=== PATIENT | female | born 1985 | race Hispanic/Latino ===

== ENCOUNTER 2016-11-05 07:25 | Day surgery (SDC) | payer OTHER ==
[2016-11-05 08:25] VITALS: BMI 37.0
[2016-11-05] MEDS ORDERED: Betamet Acet/Betamet Na Ph 30 MG/5 ML VIAL ONE (09:38)
[2016-11-05 10:02] LABS: Bilirubin Negative (Negative); Blood, Urine Negative (Negative); Glucose, Urine (Dipstick) Negative (Negative); Ketone, Urine Negative (Negative); Nitrite Negative (Negative); Protein, Urine (Dipstick) Negative (Neg-Trace); Urobilinogen 0.2 mg/dL (0.2-1.0)
[2016-11-05 10:04] LABS: Bacteria/HPF None Seen HPF (None Seen); Hyaline Casts/LPF 0-3 HYALINE CAST LPF (0-3 Hyaline); RBC/HPF 0-3 HPF (0-3); Squamous Epithelial 0-3 HPF (0-3); WBC/HPF None Seen HPF (0-3)
[2016-11-05 10:15] LABS: Amphetamine Not Detected (NotDetected); Methadone Not Detected (NotDetected); Methamphetamine Not Detected (NotDetected)
--- NOTE | 2016-11-05 10:30 | ULT ---
BIOPHYSICAL PROFILE: History: Decreased movement. Technique: Multiplanar grayscale and color doppler images were obtained in a transabdominal ul trasound. FINDINGS: There is a live intrauterine with heart rate of 128 beats/minute. The BJ is low measuring 3.2 cm. Biophysical profile was calculated. The fetus scored 8/8 which is normal. IMPRESSION: 1. Normal biophysical profile. 2. Oligohydramnios. POS: [facility]
--- NOTE | 2016-11-06 08:30 | PRG ---
DATE OF SERVICE: 11/05/2016 CHIEF COMPLAINT: No movement since 2100 hours. HISTORY OF PRESENT ILLNESS: At the time of presentation, Ms. Brian Hollins is a 31-year-old gra bryant 7, para 4 with history of four prior deliveries, all associated with preeclamp erendira, who presents with no movement since 2100 hours last night. She denies any vaginal bleedi ng, leakage of fluid, or contractions. She denies any fever or chills. She does report some consti pation, but denies any nausea, vomiting, or diarrhea. She denies any cardiovascular, respiratory, o r neurologic complaints. She denies any history of hematuria or dysuria. She is currently on Macro bid prophylaxis once daily for history of urosepsis with at 25 weeks. PAST MEDICAL HISTORY: Negative. PAST SURGICAL HISTORY: 1. section x4. 2. Cholecystectomy. OBSTETRIC HISTORY: The patient is a 7, para 4, AB 2. MEDICATIONS: 1. vitamins. 2. Iron. 3. Acyclovir. 4. Baby aspirin. 5. Macrobid prophylaxis. ALLERGIES: No known drug allergies. SOCIAL HISTORY: The patient denies any tobacco, alcohol, or drug use during this . PHYSICAL EXAMINATION: VITAL SIGNS: Blood pressure is 120s to 130s over 80s to 90s, pulse 78, respiratory rate 18, tempera ture 98.7. GENERAL: Nontoxic-appearing female in no acute distress. OBSTETRIC: heart tracing is reactive and category 1. Tocodynamometer is quiet. HEENT: Normocephalic, atraumatic. LUNGS: Respirations are unlabored. ABDOMEN: Gravid, nontender. EXTREMITIES: Without cyanosis, clubbing, or edema. LABORATORY STUDIES: Urinalysis is negative for proteinuria, negative for pyuria, uatxqau-zc-iwjmvsg ine ratio 0.19. Ultrasound is notable for biophysical profile of 8/8 with an BJ that was initially reported as 5, but on the final dictation by the radiologist was reported at 3.2. ASSESSMENT AND PLAN: 1. A 33 weeks, 0 day intrauterine with BPP of 10/10. The patient has not had anything to eat or drink when she presented, and after eating and drinking, had some movement. 2. Borderline blood pressures. records were requested and patient's blood pressures usual ly run in the 120s to 130s over 80s to 90s range. She denies any preeclampsia symptoms at this time and her ngrceez-ld-yfceyektjx ratio was 0.19. Patient did have a baseline 24-hour urine early in t his that was negative. She will continue to follow up with her primary retail loan officer. 3. Oligohydramnios. When I discussed this case with Dr. Torrez, patient's primary retail loan officer, the BJ that had been reported was a little over 5. Although admission for hydration was discussed, Dr Michoacano Torrez recommended completing her course of betamethasone as an outpatient. She received her first dose today, and will return tomorrow to receive the second dose. I will order a repeat BJ to be d one as well. The patient will then follow up with Dr. Torrez in the office on Thursday. The patient i s discharged to home with routine obstetric and preeclampsia precautions. She does understand the p carol ann of care. She was encouraged to aggressively p.o. hydrate today.
== END 2016-11-05 11:15 | disposition home or self-care (01) ==
LOC: L&D/OP 07:25
PROVIDERS: ATTEND Obstetrics & Gynecology
DX: O36.8130 Decreased fetal movements, third trimester, not applicable or unspecified (principal); O41.03X0 Oligohydramnios, third trimester, not applicable or unspecified; Z3A.33 33 weeks gestation of pregnancy; Z98.891 History of uterine scar from previous surgery; Z90.49 Acquired absence of other specified parts of digestive tract; Z79.82 Long term (current) use of aspirin; Z79.899 Other long term (current) drug therapy
CPT/HCPCS: 59025; 76819; 80306; 81001; 82570; 84156; 96372; J0702

== ENCOUNTER 2016-11-06 10:25 | Day surgery (SDC) | payer OTHER ==
[~2016-11-06 10:25] MED LIST: Betamet Acet/Betamet Na Ph 30 MG/5 ML VIAL IM SCH
[2016-11-06 10:58] VITALS: BMI 37.0
--- NOTE | 2016-11-06 12:48 | ULT ---
BIOPHYSICAL PROFILE: Date: 11/06/16 COMPARISON: 11/05/16. HISTORY: Oligohydramnios. TECHNIQUE: Multiplanar Lockhart scale and color Doppler images were obtained in a transabdominal ultrasound. FINDINGS: There is a single live intrauterine with heart rate of 145 beats/minute. BJ is 6.9 cm, wh ich is low normal. A biophysical profile was calculated at 8 of 8, which is normal. IMPRESSION: 1. Normal biophysical profile. 2. Low normal BJ. POS: [facility]
--- NOTE | 2016-11-06 21:14 | PRG ---
DATE OF SERVICE: 11/06/2016 OB ER ENCOUNTER HISTORY OF PRESENT ILLNESS: The patient is a 31-year-old female with an intrauterine at 33 weeks, who was advised to come in for her second shot of betamethasone and a repeat BPP as she had reported BJ of 3.6 yesterday. The patient came in as instructed and has had a BPP of 8/8 with an BJ of 6.9 cm with a reassuring BPP and improved BJ. Patient has been discharged home with instructions to follow up with her primary OB as scheduled. PHYSICAL EXAMINATION: VITAL SIGNS: Blood pressure today 124/75, heart rate of 93, respiratory rate of 18, temperature 98.3. GENERAL: She appears to be in no acute distress. She is alert and oriented, and cooperative and pleasant to interact with. HEAD: Normocephalic, atraumatic. ABDOMEN: Soft. She has a heart tracing that shows baseline in the 140s with moderate long -term variability, positive accelerations, no decelerations, and no contractions on the tocometer. Indication oligohydramnios. ASSESSMENT AND PLAN: The patient is being discharged to home with instructions to follow up with her primary OB, Dr. Torrez, as scheduled. LORY
== END 2016-11-06 11:50 | disposition home or self-care (01) ==
LOC: L&D/OP 10:25
PROVIDERS: ATTEND Obstetrics & Gynecology
PROC: BY4FZZZ Ultrasonography of Third Trimester, Single Fetus (ICD-10-PCS; principal; 2016-11-06)
DX: O36.8130 Decreased fetal movements, third trimester, not applicable or unspecified (principal); O41.03X0 Oligohydramnios, third trimester, not applicable or unspecified; Z3A.33 33 weeks gestation of pregnancy; Z79.82 Long term (current) use of aspirin; Z79.899 Other long term (current) drug therapy; Z87.891 Personal history of nicotine dependence
CPT/HCPCS: 76819; 96372; J0702

== ENCOUNTER 2016-11-15 19:04 | Day surgery (SDC) | payer OTHER ==
[2016-11-15 19:41] VITALS: BP 141/85; TEMP 99.2; BMI 37.5
[2016-11-15 20:58] LABS: #Basophils 0.1 thou/uL (0.0-0.2); #Eosinphils 0.1 thou/uL (0.0-0.7); #Lymphocytes 1.7 thou/uL (1.20-3.40); #Monocytes 0.8 thou/uL (0.11-0.59); #Neutrophils 5.8 thou/uL (1.40-6.50); %Eosinophils 0.9 % (0.0-10.0); %Lymphocytes 20.5 % (21.0-51.0); %Monocytes 9.2 % (0.0-10.0); Hematocrit 33.8 % (36.0-47.0); Mean Platelet Volume 9.8 fL (7.4-10.4); White Blood Cell (WBC) Count 8.5 thou/uL (4.8-10.8)
[2016-11-15 21:15] LABS: AST (SGOT) 16 U/L (5-34); Anion Gap 12 mmol/L (10-20); BUN (Urea Nitrogen) 8 mg/dL (7.0-18.7); Calc. Creatinine Clearance 208 mL/min (70-130); Calcium 9.3 mg/dL (7.8-10.44); Carbon Dioxide 23 mmol/L (22-29); Chloride 103 mmol/L (98-107); Estimated GFR-MDRD Greater than 90
[2016-11-15 21:32] LABS: Bilirubin Negative (Negative); Blood, Urine Negative (Negative); Glucose, Urine (Dipstick) Negative (Negative); Ketone, Urine Negative (Negative); Nitrite Negative (Negative); Protein, Urine (Dipstick) Negative (Neg-Trace); Urobilinogen 0.2 mg/dL (0.2-1.0)
[2016-11-15 21:35] LABS: Bacteria/HPF Rare-Few HPF (None Seen); Hyaline Casts/LPF 0-3 HYALINE CAST LPF (0-3 Hyaline); RBC/HPF 0-3 HPF (0-3); WBC/HPF 0-3 HPF (0-3)
--- NOTE | 2016-11-16 07:15 | PRG ---
DATE OF SERVICE: 11/15/2016 TIME OF SERVICE: 2145 hours. PRESENTING COMPLAINT: Elevated blood pressures at home at 34 weeks' gestation. HISTORY OF PRESENT ILLNESS: Ms. Hollins is a 31-year-old 7, para 4, AB 2 with previous C-s ection x5. She has had 1 previous classical , is scheduled for a repeat at 37 weeks' gesta tion. She also has a history of preeclampsia in the past and is on aspirin and daily blood pressure monitoring. She reports some elevated blood pressures to 150s systolic at home without headache or blurred vision. OB AND TUB ATTENDANT HISTORY: As noted. Blood type is A positive, antibody negative, Pap negative, rubella i mmune, VDRL nonreactive, hepatitis B, GC chlamydia negative, positive history of herpes. The patien t has a history of a Zika travel. PAST MEDICAL HISTORY: Preeclampsia. PAST SURGICAL HISTORY: C-sections. ALLERGIES: Denies. MEDICATIONS: vitamins, baby aspirin, Macrodantin, and acyclovir. SOCIAL HISTORY: Denies tobacco, alcohol, or drug use. FAMILY HISTORY: Noncontributory. REVIEW OF SYSTEMS: Noncontributory. PHYSICAL EXAMINATION: GENERAL: female in no acute distress. VITAL SIGNS: Temperature 99.1, respirations 18, initial blood pressure was, she had a systolic of 1 52/82, subsequent blood pressures after the patient was admitted and remained calm, were in the 130s to 140s range with diastolics in the 80s. HEENT: Within normal limits. LUNGS: Clear to auscultation bilaterally. HEART: Regular rate and rhythm. BREASTS: No masses bilaterally. ABDOMEN: Soft, nontender. Fundal height 34 cm. FHTs 140s to 150s, positive accelerations, no dece lerations, category 1 heart rate tracing. PELVIC: Vulva without lesions. Vagina without discharge. Cervical exam deferred. EXTREMITIES: Without clubbing, cyanosis, or edema. DTRs 1+. LABORATORY STUDIES: The patient had a white count of 8.5, hematocrit of 33.8, normal platelets at 1 77. Creatinine of 0.57 and AST of 16. Negative protein in the urine. IMPRESSION: History of preeclampsia on baby aspirin with a prior possible classical uterine incisio n, for repeat at 37 weeks without evidence of severe preeclampsia. PLAN: Discharge home. Continue low activity status with blood pressure checks and keep scheduled f ollow up with [employer] with Dr. Chamorro this week.
== END 2016-11-15 22:00 | disposition home or self-care (01) ==
LOC: L&D/OP 19:04
PROVIDERS: ATTEND Obstetrics & Gynecology
DX: O99.89 Other specified diseases and conditions complicating pregnancy, childbirth and the puerperium (principal); R03.0 Elevated blood-pressure reading, without diagnosis of hypertension; Z3A.34 34 weeks gestation of pregnancy; Z79.82 Long term (current) use of aspirin; Z79.899 Other long term (current) drug therapy; Z20.828 Contact with and (suspected) exposure to other viral communicable diseases; Z87.891 Personal history of nicotine dependence; Z87.59 Personal history of other complications of pregnancy, childbirth and the puerperium; Z83.3 Family history of diabetes mellitus
CPT/HCPCS: 36415; 81001; 82570; 84156; 84450

== ENCOUNTER 2016-11-17 09:27 | Outpatient (CLI) | payer OTHER ==
--- NOTE | 2016-11-17 11:07 | ULT ---
LIMITED OB ULTRASOUND FOR BIOPHYSICAL PROFILE: Date: 11/17/16 FINDINGS: A single live intrauterine gestation in vertex presentation with cardiac activity noted at 133 beats /minute. BJ estimated at 8.7 cm. Placenta is posterior in location without evidence of previa. The cervix measured 4.3 cm in length. Fetus received 2/2 for movement, 2/2 for tone, 2/2 for breathing, and 2/2 for amni otic fluid volume. IMPRESSION: Biophysical profile is 8 out of 8. POS: [facility]
== END 2016-11-17 09:28 | disposition home or self-care (01) ==
LOC: ULT 09:27
PROVIDERS: ATTEND Obstetrics & Gynecology
DX: O09.93 Supervision of high risk pregnancy, unspecified, third trimester (principal)
CPT/HCPCS: 76819

== ENCOUNTER → 2016-11-21 | Day surgery (SDC) | payer OTHER ==
[2016-11-21 12:08] VITALS: BP 144/89; TEMP 98.8
[2016-11-21 12:12] VITALS: BMI 38.9
--- NOTE | 2016-11-21 13:24 | PDOC.LDHP ---
Labor and Delivery H&P Chief complaint: other (PIH workup) HPI: 31 y/o at 35w2d, patient of Dr. Chamorro/Kayli at , was sent for evaluation of elevated BPs. Had mild range BPs in clinic consistent with baseline but reported higher than usual blood pressures at home. Is on aspirin for history of preeclampsia. Denies any current HICKS, vision changes, RUQ pain. No VB, LOF, or ctx. +FM ROS neg for HEENT, cv, pulm, gi, gu, neuro, psych, skin, musculoskeletal, or constitutional symptoms other than mentioned above. OB History Details: 4 prior c/s with the first being classical at 25 weeks. Others delivered around 35 weeks. Preeclampsia with all pregnancies. Current complications: hypertension Past Medical History: None Current medications: pre-pearl vitamins Previous surgical history: low tranverse CS, classical CS, cholecystectomy Allergies/Adverse Reactions: Allergies Allergy/AdvReac Type Severity Reaction Status Date / Time No Known Allergies Allergy Verified 11/15/16 19:39 Social history: none - Physical Exam Abnormal vital signs: Normal to mild range BPs General: NAD, resting Lungs: nonlabored breathing Abdomen: gravid Extremeties: no edema FHT: category 1 (140s, mod variability, + accels, no decels) [place] contractions every: rare - OB Labs Blood type: A RH: positive Additional Labs: Laboratory Results - last 24 hr Laboratory Tests 11/21/16 11/21/16 11/21/16 12:00 13:33 13:33 WBC 8.6 RBC 3.72 L Hgb 11.6 L Hct 33.1 L MCV 88.9 MCH 31.1 H MCHC 35.0 RDW 12.1 Plt Count 162 MPV 10.2 Neutrophils % 72.7 Neutrophils % (Manual) Not Reportable Lymphocytes % 16.7 L Monocytes % 9.7 Eosinophils % 0.8 Basophils % 0.2 Neutrophils # 6.2 Lymphocytes # 1.4 Monocytes # 0.8 H Eosinophils # 0.1 Basophils # 0.0 Sodium 136 Potassium 4.1 Chloride 105 Carbon Dioxide 24 Anion Gap 11 BUN 7 Creatinine 0.56 L Estimated GFR (MDRD) Greater than 90 Glucose 60 L Calcium 9.0 Total Bilirubin 0.2 AST 14 ALT 11 Alkaline Phosphatase 174 H Serum Total Protein 6.8 Albumin 3.2 L Globulin 3.6 H Albumin/Globulin Ratio 0.9 L U Random Total Protein 17 Urine Creatinine 73.21 - Assessment 31 y/o at 35w2d with no e/o preeclampsia. Protein creatinine ratio 0.23. status reassuring with reactive NST and BPP 11/18. - Plan -: D/c home with precautions and 24 hour urine protein collection to be returned tomorrow to lab. Already had celestone x 2 this month.
[2016-11-21 14:01] LABS: #Eosinphils 0.1 thou/uL (0.0-0.7); #Lymphocytes 1.4 thou/uL (1.20-3.40); #Monocytes 0.8 thou/uL (0.11-0.59); #Neutrophils 6.2 thou/uL (1.40-6.50); %Basophils 0.2 % (0.0-1.0); %Eosinophils 0.8 % (0.0-10.0); %Lymphocytes 16.7 % (21.0-51.0); %Monocytes 9.7 % (0.0-10.0); Hematocrit 33.1 % (36.0-47.0); Mean Platelet Volume 10.2 fL (7.4-10.4); Red Blood Cell (RBC) Count 3.72 mill/uL (4.20-5.40); White Blood Cell (WBC) Count 8.6 thou/uL (4.8-10.8)
[2016-11-21 14:23] LABS: ALT (SGPT) 11 U/L (8-55); AST (SGOT) 14 U/L (5-34); Alkaline Phosphatase 174 U/L (40-150); Anion Gap 11 mmol/L (10-20); BUN (Urea Nitrogen) 7 mg/dL (7.0-18.7); Bilirubin, Total 0.2 mg/dL (0.2-1.2); Calc. Creatinine Clearance 219 mL/min (70-130); Carbon Dioxide 24 mmol/L (22-29); Chloride 105 mmol/L (98-107); Estimated GFR-MDRD Greater than 90; Globulin 3.6 g/dL (2.4-3.5); Protein, Total 6.8 g/dL (6.0-8.3)
--- NOTE | 2016-11-21 15:16 | ULT ---
ULTRASOUND BIOPHYSICAL PROFILE: Date: 11-21-16 History: Elevated blood pressure. History of oligohydramnios. Comparison: 11-17-16 FINDINGS: Again noted is a single intrauterine gestation in cephalic presentation. Cardiac doppler demonstrate s heart tones with a heart rate of 145 beats/minute. The placenta is located anteriorly without evidence of placenta previa. Cervical length is 3.1 cm. Amniotic fluid index was obtained which measures 9.8 cm and previously measured 8.7 cm on study of . Cardiac doppler demonstrates heart tones with a heart rate ranging from 137 to 149 beats /minute. A score of 2 is obtained each for tone, breathing, movements, and amniotic fluid v olume. IMPRESSION: 1. biophysical profile score of 8/8 is obtained. 2. Single intrauterine gestation in cephalic presentation with heart tones documented with hea rt rate ranging from 137 to 149 beats/minute. 3. Amniotic fluid index is 9.8 cm. POS: [facility]
== END ==
LOC: L&D/OP 11:58
PROVIDERS: ATTEND Obstetrics & Gynecology
DX: O10.013 Pre-existing essential hypertension complicating pregnancy, third trimester (principal); Z79.899 Other long term (current) drug therapy; Z3A.35 35 weeks gestation of pregnancy; Z90.49 Acquired absence of other specified parts of digestive tract; Z98.891 History of uterine scar from previous surgery; Z87.59 Personal history of other complications of pregnancy, childbirth and the puerperium
CPT/HCPCS: 36415; 76819; 80053; 82570; 84156; 85025

== ENCOUNTER 2016-11-30 19:40 | Inpatient (IN) | payer OTHER ==
[2016-11-30 20:14] VITALS: BMI 38.9
[2016-11-30 20:46] LABS: #Basophils 0.1 thou/uL (0.0-0.2); #Eosinphils 0.1 thou/uL (0.0-0.7); #Monocytes 0.6 thou/uL (0.11-0.59); #Neutrophils 4.9 thou/uL (1.40-6.50); %Basophils 1.8 % (0.0-1.0); %Lymphocytes 15.5 % (21.0-51.0); %Monocytes 8.5 % (0.0-10.0); Hematocrit 33.3 % (36.0-47.0); Mean Platelet Volume 10.3 fL (7.4-10.4); Red Blood Cell (RBC) Count 3.72 mill/uL (4.20-5.40); White Blood Cell (WBC) Count 6.7 thou/uL (4.8-10.8)
[2016-11-30 20:56] LABS: Amphetamine Not Detected (NotDetected); Methamphetamine Not Detected (NotDetected)
[2016-11-30 20:57] LABS: Methadone Not Detected (NotDetected)
[2016-11-30] MEDS ORDERED: Acetaminophen 500 MG TAB PO SCH (21:00)
[2016-11-30 21:20] LABS: ALT (SGPT) 13 U/L (8-55); AST (SGOT) 15 U/L (5-34); Alkaline Phosphatase 191 U/L (40-150); Anion Gap 11 mmol/L (10-20); BUN (Urea Nitrogen) 8 mg/dL (7.0-18.7); Bilirubin, Total 0.2 mg/dL (0.2-1.2); Calc. Creatinine Clearance 211 mL/min (70-130); Calcium 8.7 mg/dL (7.8-10.44); Carbon Dioxide 22 mmol/L (22-29); Chloride 106 mmol/L (98-107); Estimated GFR-MDRD Greater than 90; Globulin 3.5 g/dL (2.4-3.5); Protein, Total 6.6 g/dL (6.0-8.3)
[2016-11-30] MEDS ORDERED: Zolpidem Tartrate 5 MG TAB PO PRN (21:39)
[2016-11-30] MEDS ORDERED: Promethazine HCl 25 MG/ML VIAL IM PRN (21:39)
[2016-11-30] MEDS ORDERED: Bicitra 30 ML UDCUP PO SCH (21:45)
[2016-11-30] MEDS ORDERED: CEFAZOLIN/Water 2 GM/20 ML SYRINGE SLOW IVP SCH (21:45)
--- NOTE | 2016-11-30 21:49 | PDOC.LDHP ---
Labor and Delivery H&P Chief complaint: other (PIH workup) HPI: 31 y/o at 36w4d, patient of Dr. Milan at , presents with elevated BPs at home with headache. Patient was seen in clinic on Thursday and sent for PIH workup due to elevated BPs. She did not come to L&D because she is "always sent home and didn't want to waste her time." Denies VB, LOF, ctx, or decreased FM. Took tylenol for her headache this morning but nothing since. Last ate at 5:30pm. Is scheduled for repeat LTCS on 12/04. Had urinary sepsis and ICU admission in July of this year. ROS neg for HEENT, cv, pulm, gi, gu, neuro, psych, skin, musculoskeletal or constitutional symptoms other than mentioned above. OB History Details: 4 prior cesareans, 1 classical and 3 LTCS. Hx severe preeclampsia. Current complications: hypertension Past Medical History: Migraines HSV Current medications: pre-pearl vitamins, other (acyclovir, Aspirin, Macrobid, flagyl) Previous surgical history: low tranverse CS, classical CS, cholecystectomy Allergies/Adverse Reactions: Allergies Allergy/AdvReac Type Severity Reaction Status Date / Time No Known Allergies Allergy Verified 11/15/16 19:39 Social history: none - Physical Exam Abnormal vital signs: normal to mild range BPs with several severe range inital BPs. General: NAD Lungs: nonlabored breathing Abdomen: gravid Extremeties: no edema FHT: category 1 - OB Labs Blood type: A RH: positive - Assessment L&D Assessment: scheduled repeat section (Hx classical c/s with new onset severe range BPs. Stable currently.) - Plan Plan: admit to L&D, to OR for section (with risk reducing salpingectomy , scheduled for 729), anesthesia consult for pain management
[2016-11-30] MEDS ORDERED: Acetaminophen 500 MG TAB PO PRN (22:12)
[2016-11-30] MEDS ORDERED: Mag-Al 1200 mg/1200 mg/30 ML UDCUP PO SCH (22:45)
[2016-12-01 06:17] LABS: #Basophils 0.1 thou/uL (0.0-0.2); #Eosinphils 0.1 thou/uL (0.0-0.7); #Lymphocytes 1.2 thou/uL (1.20-3.40); #Monocytes 0.6 thou/uL (0.11-0.59); #Neutrophils 3.9 thou/uL (1.40-6.50); %Basophils 1.6 % (0.0-1.0); %Eosinophils 1.7 % (0.0-10.0); %Monocytes 10.3 % (0.0-10.0); Hematocrit 33.6 % (36.0-47.0); Mean Platelet Volume 10.3 fL (7.4-10.4); Red Blood Cell (RBC) Count 3.76 mill/uL (4.20-5.40); White Blood Cell (WBC) Count 5.9 thou/uL (4.8-10.8)
[2016-12-01 06:33] LABS: Calcium 8.7 mg/dL (7.8-10.44); Chloride 106 mmol/L (98-107)
[2016-12-01 06:34] LABS: Globulin 3.2 g/dL (2.4-3.5); Protein, Total 6.3 g/dL (6.0-8.3)
[2016-12-01 06:35] LABS: Anion Gap 14 mmol/L (10-20); Carbon Dioxide 21 mmol/L (22-29)
[2016-12-01 06:36] LABS: Bilirubin, Total 0.2 mg/dL (0.2-1.2)
[2016-12-01 06:37] LABS: Alkaline Phosphatase 199 U/L (40-150); Calc. Creatinine Clearance 201 mL/min (70-130); Estimated GFR-MDRD Greater than 90
[2016-12-01 06:38] LABS: BUN (Urea Nitrogen) 10 mg/dL (7.0-18.7)
[2016-12-01 06:39] LABS: AST (SGOT) 16 U/L (5-34)
[2016-12-01 06:40] LABS: ALT (SGPT) 14 U/L (8-55)
[2016-12-01] MEDS ORDERED: PHENYLEPHRINE-NS 100 MCG/ML 10 ML SYRINGE ONE (07:12)
[2016-12-01] MEDS ORDERED: Oxytocin 10 UNITS/ML VIAL ONE (07:12)
[2016-12-01] MEDS ORDERED: ePHEDrine/0.9% NaCl/PF SYRINGE 50 mg/10 ml ONE (07:13)
[2016-12-01] MEDS ORDERED: Morphine PF 1 MG/ML SYR ONE (07:14)
[2016-12-01] MEDS ORDERED: Ketorolac Tromethamine 30 MG/ML VIAL ONE (07:15)
--- NOTE | 2016-12-01 07:35 | PDOC.LDPN ---
Labor & Delivery Progress Note - Subjective Subjective: comfortable - Objective Abnormal vital signs: Occ Severe range BPs 170-180s/100s, mostly mild range BPs General: NAD Uterine fundus: non tender FHT: category 1 [place] contractions every: quiet -: Dispo for delivery at 36.5 due to PEC with severe features. Labs wnl, PCR 0.6, no sx PIH. BPs mild-severe. For Mag recovery. Disc Repeat CS and risk reducing salpingectomy for sterilization. Risk of bleeding transfusion infection damage to surrounding structures and trauma. Pt understands and wishes to proceed. All questions answered.
[2016-12-01] MEDS ORDERED: Ondansetron HCl/PF 4 MG/2 ML Vial ONE ×2 (08:03→09:06)
[2016-12-01] MEDS ORDERED: Lidocaine 1.5% w/Epi 1:200K 30 ML VIAL (Epid Use) ONE (08:30)
[2016-12-01] MEDS ORDERED: Fentanyl 100 MCG/2 ML VIAL ONE (08:32)
[2016-12-01] MEDS ORDERED: Promethazine HCl 25 MG/ML VIAL IM PRN ×2 (08:35→11:39)
[2016-12-01] MEDS ORDERED: Promethazine HCl 25 MG SUPP PR PRN (08:35)
[2016-12-01] MEDS ORDERED: Eucerin (Mineral Oil/Petrolatum,White) 30 gm Jar TOP PRN (08:35)
[2016-12-01] MEDS ORDERED: Ondansetron HCl/PF 4 MG/2 ML Vial IVP PRN ×3 (08:35→11:39)
[2016-12-01] MEDS ORDERED: diphenhydrAMINE 50 MG/ML VIAL IVP PRN (08:35)
[2016-12-01] MEDS ORDERED: Naloxone HCl 0.4 mg/ml Vial IV PRN (08:35)
[2016-12-01] MEDS ORDERED: Naloxone HCl 0.4 mg/ml Vial IVP PRN ×2 (08:35)
[2016-12-01] MEDS ORDERED: Ketorolac Tromethamine 30 MG/ML VIAL IVP SCH (08:45)
[2016-12-01] MEDS ORDERED: Communication Order-Pharmacy FS SCH (08:45)
[2016-12-01 08:48] LABS: CO2 Tension (PaCO2) 62.8 mmHg (44.0-56.0)
[2016-12-01] MEDS ORDERED: Promethazine HCl 25 MG/ML VIAL ONE (09:09)
[2016-12-01] MEDS ORDERED: Promethazine HCl 25 MG/ML VIAL IM/IV PRN (09:10)
[2016-12-01] MEDS ORDERED: LR / Pitocin 40 units/1000 ml 1,000 ML ONE (09:31)
[2016-12-01] MEDS ORDERED: Morphine 2 MG/ML SYRINGE SLOW IVP PRN (11:05)
[2016-12-01] MEDS ORDERED: Bisacodyl 10 MG SUPP PR PRN (11:39)
[2016-12-01] MEDS ORDERED: diphenhydrAMINE 25 MG CAP PO PRN (11:39)
[2016-12-01] MEDS ORDERED: Magnesium Sulfate 20 GM/WATER 500 ML BAG IVPB SCH (11:39)
[2016-12-01] MEDS ORDERED: Prenatal Vitamin 1 TAB PO SCH (11:39)
[2016-12-01] MEDS ORDERED: Lanolin Ointment 7 GM TUBE TOP PRN (11:39)
[2016-12-01] MEDS ORDERED: Calcium Gluconate 4.6 MEQ in Sodium Chloride 0.9% 100 ML IVPB PRN (11:39)
[2016-12-01] MEDS ORDERED: Adacel (T-DAP) 0.5 ML VIAL IM ONE (11:39)
[2016-12-01] MEDS ORDERED: Simethicone Chewable 80 MG TAB PO PRN (11:39)
[2016-12-01] MEDS ORDERED: Acetaminophen 325 MG TAB PO PRN (11:39)
[2016-12-01] MEDS: Magnesium Sulfate 20 gm/500 ml 20 GM/500 ML BAG IVPB SCH ×2 (12:07→18:16)
[2016-12-01] MEDS: Ferrous Sulfate 325 MG TAB PO SCH (12:18)
[2016-12-01] MEDS: Docusate (Surfak) 240 MG CAP PO SCH (12:18)
--- NOTE | 2016-12-01 12:39 | PDOC.OPDEL ---
OB Operative/Delivery Note Delivery Dr/Surgeon: Kayli Assist: Sean Veloz, PGY2 Pre-Delivery Diagnosis: other (IUP at 36.5, PEC with severe features, sterilization) Procedure/Post Delivery Dx: repeat low transverse CS (and bilateral risk reducing salpingectomy) Weeks gestation: 36 Anesthesia: spinal - Findings A Sex: male Weight: 6 lb 8 oz - 1 min: 8 - 5 min: 9 - Additional Findings/Plan Placenta delivered: spontaneous findings: low transverse hysterotomy with extension (extension in midhysterotomy from uterine window), normal uterus, normal tubes, normal ovaries , other (adherent bladder to IDALMIS, uterine window, 1cm inferior extension in middle of hysterotomy from uterine window.) Estimated blood loss: 1000 Compilations/Other Findings: NC x 1 Bladder backfilled with 300cc saline, no extravasation of fluid noted. Post delivery plan: recovery in LICU
--- NOTE | 2016-12-01 13:46 | OP ---
DATE OF OPERATION: 12/01/2016 PREOPERATIVE DIAGNOSES: 1. Intrauterine at 36 weeks and 5 days. 2. Preeclampsia with severe features. 3. Prior x4 with prior classical . 4. Sterilization. POSTOPERATIVE DIAGNOSES: 1. Intrauterine at 36 weeks and 5 days. 2. Preeclampsia with severe features. 3. Prior x4 with prior classical . 4. Sterilization. 5. Dense intraabdominal adhesions. PROCEDURE: A repeat low-transverse section, lysis of adhesions via Pfannenstiel skin incision and bilateral salpingectomy. ANESTHESIA: Spinal. ESTIMATED BLOOD LOSS: One liter IVF, 900 mL crystalloid. URINE OUTPUT: 300 mL of clear urine. ATTENDING PHYSICIAN: Ann Milan M.D. CLINICAL CYTOGENETICIST: Dr. Blanca Veloz and Dr. Estrada, PGY-2. COMPLICATIONS: None. DRAINS: Nicholas catheter. PATHOLOGY: Placenta. FINDINGS: Thickened scarred fascia. Dense adhesions of the fascia to the rectus, omental adhesions to the anterior abdominal wall and peritoneum, bladder that was adhered up over the lower uterine segment, supporting the uterine window. Upon closure of the hysterotomy, the bladder was then back filled with saline and no extravasation of fluid was noted. There was a 1 cm extension on the hysterotomy in the midline secondary to the patient's uterine window that was repaired with Vicryl and hemostatic. Fallopian tubes were normal bilaterally as well as the ovaries. There was a male that weighed 6 pounds 8 ounces with clear amniotic fluid, Apgars of 8 and 9, cord pH was 7.28. There was a nuchal cord x1. OPERATIVE TECHNIQUE: The patient was taken to the operating room where spinal anesthesia was obtained without difficulty. The patient was prepped and draped in a sterile fashion in the dorsal supine position with a leftward tilt. After ensuring adequacy of anesthesia, a Pfannenstiel skin incision was made just to the patient's prior scar and the old scar was then resected with traction using Allis clamps. The subcutaneous tissue was incised with the scalpel and taken down to the fascia that was incised with the scalpel and extended with the Goode scissors. The superior aspect of the fascia was tented with 2 Kochers and these dense adhesions of the fascia to the rectus were taken down with the Mayos. The peritoneum was entered into during this process and the finger was placed inside the peritoneal cavity to ensure there was no bowel underlying the area of dissection. The inferior aspect of the fascia was tented with 2 Kochers and dissected off the rectus with the Mayos as well down to the pubic symphysis. The peritoneum was then manually retracted and additional peritoneal bands were taken down with the Bovie. The Kevin O retractor was then placed after ensuring no bowel adhesions to the uterus and the lower uterine segment was identified with a window and the bladder lying over the uterine window. This was then taken down with the use of Metzenbaums. The hysterotomy was made high on the uterus and entered into bluntly and extended with the Haines maneuver. The infant's head was brought to the hysterotomy and delivered atraumatically followed by the body. Nuchal cord was x1. The was bulb suctioned. Cord was clamped and handed to awaiting melvi team. Cord gas was obtained as well as cord blood and the placenta was allowed to spontaneously deliver, the uterus was then exteriorized, cleared of all clots and debris and hysterotomy repair was began with #1 Monocryl in a running locking fashion. Upon reaching the mid portion of the hysterotomy, there was an extremely thin lower uterine segment on the inferior portion of the incision and this was identified and grasped with Allis clamps and the bladder had been taken down just below this level, and therefore, the bladder reflection was noted, and this was grasped with a pickup and elevated and dissected off of the thin lower uterine segment with the Metzenbaum scissors to allow repair of the hysterotomy and the 1 cm extension. The extension was then identified and this was repaired with a 2-0 Vicryl in a running locking fashion with excellent hemostasis. The remainder of the hysterotomy was then repaired with #1 Monocryl. Hemostasis was noted. Pressure was held over the hysterotomy , and at that time, the bladder was back filled with saline and there was no extravasation of the fluid noted after instilling 300 mL in the bladder. This was then emptied and the hysterotomy was examined. There was a slight oozing on the right portion of the lateral hysterotomy and this was repaired with a #1 Monocryl in a [id number]-[id number]-yltxz fashion with excellent hemostasis. At that point , a pack was then placed over the hysterotomy and the tubes were identified. The left tube was grasped with a Lang clamp and elevated. Windows were made in the mesosalpinx around the vessels and these vessels were then clamped and the tube was clamped across at its insertion into the uterus and this was transected and the vessels were transected. The vessels were then ligated with a 2-0 chromic and hemostasis was noted on the left side. The same procedure was carried out on the right side with excellent hemostasis. Hysterotomy was once again examined and noted to be hemostatic. FloSeal was placed over the hysterotomy at that time and pressure was held for 2 minutes. The pelvis was then irrigated and suctioned and hemostasis of all the surgical sites was once again observed. The Kevin O retractor was removed out of the abdomen and the rectus muscles were examined. At this time the patient was experiencing some discomfort and therefore lidocaine 1% with epinephrine was infiltrated into the subrectus bilaterally. There was some oozing off of the fascia as well off of the upper rectus muscles that were cauterized easily. There was also some oozing off of the rectus on the left lower portion. This was not easily cauterized. Therefore, a stitch of 2-0 Monocryl was placed that resulted in excellent hemostasis. No active bleeding was noted and the fascia was then repaired with a 0 PDS x2 sutures with excellent reapproximation, and the subcutaneous tissue was irrigated and cauterized of any bleeders and reapproximated with a 2-0 plain gut in a running fashion. The skin was released from the patient's prior contracted scar to allow for less puckering of the closure. The skin was then closed with toño and a pressure dressing was applied. The patient tolerated the procedure well. Sponge, lap, and needle counts were correct x2. The patient was taken to recovery room in stable condition. Patient will be for magnesium recovery and received Ancef 2 grams prior to the procedure. LORY
[2016-12-01] MEDS ORDERED: NIFEdipine XL 30 MG TAB PO SCH (19:00)
[2016-12-01] MEDS: Ketorolac Tromethamine 30 MG/ML VIAL IVP PRN (20:00)
[2016-12-01] MEDS ORDERED: HYDROcodone/Acetaminophen 5/325 mg Tablet PO PRN ×2 (20:45)
[2016-12-01] MEDS ORDERED: Zolpidem Tartrate 5 MG TAB PO PRN (20:45)
[2016-12-02] MEDS: Ferrous Sulfate 325 MG TAB PO SCH ×2 (01:49→18:18)
[2016-12-02] MEDS: Docusate (Surfak) 240 MG CAP PO SCH ×2 (01:50→21:31)
[2016-12-02 03:21] LABS: Hematocrit 30.2 % (36.0-47.0); Mean Platelet Volume 10.2 fL (7.4-10.4); Red Blood Cell (RBC) Count 3.39 mill/uL (4.20-5.40); White Blood Cell (WBC) Count 7.4 thou/uL (4.8-10.8)
[2016-12-02] MEDS: Magnesium Sulfate 20 gm/500 ml 20 GM/500 ML BAG IVPB SCH (04:04)
[2016-12-02] MEDS: Ketorolac Tromethamine 30 MG/ML VIAL IVP PRN (06:09)
--- NOTE | 2016-12-02 06:37 | ADD-OP ---
ADDENDUM DATE OF SERVICE: 12/01/2016 TIME OF SERVICE: 7:30 a.m. I was present and scrubbed to assist the repeat low transverse with Dr. Ann Milan. Please see her operative report for full details.
--- NOTE | 2016-12-02 07:50 | PDOC.PP ---
Post Progress Note Post Day #: 1 PO intake tolerated: no Flatus: no Ambulation: no Vital Signs (12 hours) Temp Pulse Resp BP 12/02/16 04:00 98.8 F 90 20 12/02/16 00:00 98.6 F 85 20 12/01/16 20:00 98.8 F 90 20 12/01/16 19:59 90 132/83 Weight Weight 206 lb - Physical Examination General: NAD Cardiovascular: RRR Respiratory: clear to auscultation bilaterally, non-labored breathing Abdominal: + bowel sounds, no distention, appropriately TTP (inc with bandage) Fundus firm & at: umb Skin: CS incision dry & intact Neurological: no gross focal deficits Psychiatric: normal affect Result Diagrams: 12/02/16 03:09 12/01/16 06:03 Additional Labs: Post Labs Blood Type A POSITIVE 12/01/16 06:03 Hep Bs Antigen Non-Reactive S/CO (NonReactive) 12/01/16 06:03 (1) delivery delivered Code(s): O82 - ENCOUNTER FOR DELIVERY WITHOUT INDICATION Status: Acute (2) Severe preeclampsia Code(s): O14.10 - SEVERE PRE-ECLAMPSIA, UNSPECIFIED TRIMESTER Status: Acute Qualifiers: Trimester: third trimester Qualified Code(s): O14.13 - Severe pre-eclampsia , third trimester - Assessment/Plan VSSAF started on procardia for persistent mild-severe BP yesterday, s/p Mag x 24 hr, will DC mag and send to floor since BPs have normalized, pt is diuresing well. Cont procardia. Routine postop advances, hgb stable from surgery, mild chronic anemia, cont Fe supp. Transfer to floor
[2016-12-02] MEDS ORDERED: NIFEdipine XL 30 MG TAB PO SCH (09:00)
[2016-12-02] MEDS ORDERED: Ondansetron HCl/PF 4 MG/2 ML Vial IVP PRN (10:13)
[2016-12-02] MEDS ORDERED: Acetaminophen 325 MG TAB PO PRN (10:13)
[2016-12-02] MEDS ORDERED: diphenhydrAMINE 25 MG CAP PO PRN (10:13)
[2016-12-02] MEDS ORDERED: Promethazine HCl 25 MG/ML VIAL IM PRN (10:13)
[2016-12-02] MEDS ORDERED: Bisacodyl 10 MG SUPP PR PRN (10:13)
[2016-12-02] MEDS ORDERED: Simethicone Chewable 80 MG TAB PO PRN (10:13)
[2016-12-02] MEDS ORDERED: Adacel (T-DAP) 0.5 ML VIAL IM ONE (10:13)
[2016-12-02] MEDS ORDERED: Lanolin Ointment 7 GM TUBE TOP PRN (10:13)
[2016-12-02] MEDS ORDERED: Docusate (Surfak) 240 MG CAP PO SCH (10:45)
[2016-12-02] MEDS ORDERED: Prenatal Vitamin 1 TAB PO SCH (10:45)
[2016-12-02] MEDS: HYDROcodone/Acetaminophen 5/325 mg Tablet PO PRN ×3 (10:45→21:32)
[2016-12-02] MEDS ORDERED: Ferrous Sulfate 325 MG TAB PO SCH (10:45)
[2016-12-02] MEDS: Ibuprofen 800 MG TAB PO SCH ×2 (14:08→21:31)
[2016-12-03] MEDS: HYDROcodone/Acetaminophen 5/325 mg Tablet PO PRN ×5 (03:36→22:24)
[2016-12-03] MEDS: Ibuprofen 800 MG TAB PO SCH ×3 (06:01→21:45)
[2016-12-03] MEDS: Ferrous Sulfate 325 MG TAB PO SCH ×2 (08:42→17:02)
[2016-12-03] MEDS: Docusate (Surfak) 240 MG CAP PO SCH ×2 (08:44→21:45)
[2016-12-03] MEDS: Prenatal Vitamin 1 TAB PO SCH (08:44)
--- NOTE | 2016-12-03 09:20 | PDOC.PP ---
Post Progress Note Post Day #: 2 PO intake tolerated: yes Flatus: yes Ambulation: yes Vital Signs (12 hours) Temp Pulse Resp BP 12/03/16 08:19 97.9 F 81 20 123/73 12/03/16 03:35 98.0 F 80 20 113/72 12/02/16 23:25 98.0 F 98 20 126/61 Weight Weight 206 lb - Physical Examination General: NAD Cardiovascular: RRR Respiratory: clear to auscultation bilaterally Abdominal: no distention, appropriately TTP Fundus firm & at: umb Extremities: negative homans (B) Skin: CS incision dry & intact Neurological: no gross focal deficits Psychiatric: normal affect Result Diagrams: 12/02/16 03:09 12/01/16 06:03 Additional Labs: Post Labs Blood Type A POSITIVE 12/01/16 06:03 Hep Bs Antigen Non-Reactive S/CO (NonReactive) 12/01/16 06:03 (1) delivery delivered Code(s): O82 - ENCOUNTER FOR DELIVERY WITHOUT INDICATION Status: Acute (2) Severe preeclampsia Code(s): O14.10 - SEVERE PRE-ECLAMPSIA, UNSPECIFIED TRIMESTER Status: Acute Qualifiers: Trimester: third trimester Qualified Code(s): O14.13 - Severe pre-eclampsia , third trimester - Assessment/Plan VSSAF No sx PIH s/p mag, BP med held due to normotensive. Observe until Day 3 for incr in BP due to continued fluid shifts and mobilization. Otherwise has met all milestones. Pain controlled on po pain meds. Cont Postop care.
[2016-12-03] MEDS: Triple Antibiotic Oint 1 GM Packet TOP PRN (20:06)
[2016-12-04] MEDS: HYDROcodone/Acetaminophen 5/325 mg Tablet PO PRN ×2 (02:55→08:07)
[2016-12-04] MEDS: Ibuprofen 800 MG TAB PO SCH ×2 (05:01→13:08)
[2016-12-04] MEDS: Ferrous Sulfate 325 MG TAB PO SCH (08:06)
[2016-12-04] MEDS: Prenatal Vitamin 1 TAB PO SCH (08:06)
[2016-12-04] MEDS: Docusate (Surfak) 240 MG CAP PO SCH (08:06)
[2016-12-04] MEDS: Triple Antibiotic Oint 1 GM Packet TOP PRN (08:08)
[2016-12-04] MEDS ORDERED: HYDROcodone/Acetaminophen 7.5/325 mg Tablet PO PRN (08:17)
[2016-12-04] MEDS ORDERED: NIFEdipine XL 30 MG TAB PO SCH (09:00)
[2016-12-04] MEDS ORDERED: Loratadine 10 MG TAB PO SCH (12:30)
[2016-12-04 12:32] VITALS: BP 148/95; TEMP 98.6
[2016-12-04] MEDS: HYDROcodone/Acetaminophen 7.5/325 mg Tablet PO PRN ×2 (12:32→16:18)
--- NOTE | 2016-12-04 13:27 | PDOC.PP ---
Post Progress Note Post Day #: 3 Subjective: no PIH sx. PO intake tolerated: yes Flatus: yes Ambulation: yes Vital Signs (12 hours) Temp Pulse Resp BP BP 12/04/16 12:31 98.6 F 80 20 148/95 H 12/04/16 10:30 85 137/89 12/04/16 09:14 76 159/96 H 12/04/16 08:47 98.9 F 76 20 159/96 H 12/04/16 08:10 98.8 F 75 18 12/04/16 06:15 75 143/91 H 12/04/16 04:37 98.1 F 89 20 141/95 H Weight Weight 206 lb - Physical Examination General: NAD Cardiovascular: RRR Respiratory: clear to auscultation bilaterally Abdominal: no distention, appropriately TTP Fundus firm & at: umb-2 Skin: CS incision dry & intact Deviation from normal: erythematous raised rash well demarcated where paper tape was from dressing Neurological: no gross focal deficits Psychiatric: normal affect Result Diagrams: 12/02/16 03:09 12/01/16 06:03 Additional Labs: Post Labs Blood Type A POSITIVE 12/01/16 06:03 Hep Bs Antigen Non-Reactive S/CO (NonReactive) 12/01/16 06:03 (1) delivery delivered Code(s): O82 - ENCOUNTER FOR DELIVERY WITHOUT INDICATION Status: Acute (2) Severe preeclampsia Code(s): O14.10 - SEVERE PRE-ECLAMPSIA, UNSPECIFIED TRIMESTER Status: Acute Qualifiers: Trimester: third trimester Qualified Code(s): O14.13 - Severe pre-eclampsia , third trimester - Assessment/Plan BP elevated, start procardia XL, if BP stable/improved ok to DC home today with close outpt followup. No sx PIH, s/p Mag. Other vitals wnl. Met all milestones, appropriate pain control, however 2 norcos make pt sleepy, will try 1 norco 7.5 as alternative. Rash on abdomen c/w allergy to tape, no induration c/w infection. Rx antihistamines and topical steroid. Rh pos RImm DC home, FU Mon 12/08
[2016-12-04] MEDS ORDERED: Hydrocortisone 1% Cream 1.5 GM Packet TOP SCH (15:00)
== END 2016-12-04 16:30 | disposition home or self-care (01) | DRG 765 ==
LOC: L&D/OP 19:40 → L&D 22:25 → 3SW 12-02 10:11
PROVIDERS: ADMIT Student in an Organized Health Care Education/Training Program; ATTEND Student in an Organized Health Care Education/Training Program
PROC: 10D00Z1 Extraction of Products of Conception, Low, Open Approach (ICD-10-PCS; principal; 2016-12-01)
PROC: 0UT70ZZ Resection of Bilateral Fallopian Tubes, Open Approach (ICD-10-PCS; 2016-12-01)
DX: O14.14 Severe pre-eclampsia complicating childbirth (principal); O98.52 Other viral diseases complicating childbirth; B00.9 Herpesviral infection, unspecified; Z30.2 Encounter for sterilization; Z3A.36 36 weeks gestation of pregnancy; Z37.0 Single live birth; O34.211 Maternal care for low transverse scar from previous cesarean delivery; O34.212 Maternal care for vertical scar from previous cesarean delivery; O69.81X0 Labor and delivery complicated by cord around neck, without compression, not applicable or unspecified; O99.62 Diseases of the digestive system complicating childbirth; K21.9 Gastro-esophageal reflux disease without esophagitis
CPT/HCPCS: 36415; 80053; 80306; 82570; 82805; 84156; 85025; 85027; 86780; 86850; 86900; 86901; 87340; 88302; 88307; 90715; J1885; J2270; J2274; J2405; J2550; J2590; J3010; J3475

== ENCOUNTER 2018-08-06 19:48 | Emergency (ER) | payer OTHER, SELFPAY ==
--- NOTE | 2018-08-06 21:12 | RAD ---
Exam: Right hand 3 views: HISTORY: Right hand injury with pain There is focal soft tissue swelling over the ulnar side of the distal fifth metacarpal region. IMPRESSION: Soft tissue swelling over the distal fifth metacarpal region on the ulnar side. No fracture or disloc ation.
== END 2018-08-06 22:05 | disposition home or self-care (01) ==
LOC: ERS 19:48
DX: S60.221A Contusion of right hand, initial encounter (principal); W23.0XXA Caught, crushed, jammed, or pinched between moving objects, initial encounter

== ENCOUNTER 2019-10-23 08:14 | Emergency (ER) | payer OTHER ==
[2019-10-23] MEDS ORDERED: Lidocaine Viscous Sol 2% 15 ml UD Cup ONE (08:48)
[2019-10-23] MEDS ORDERED: Ketorolac Tromethamine 30 MG/ML VIAL ONE (08:48)
[2019-10-23] MEDS ORDERED: Mag-Al 1200 mg/1200 mg/30 ML UDCUP ONE (08:48)
[2019-10-23] MEDS ORDERED: Ondansetron PF 4 MG/2 ML Vial ONE (08:48)
[2019-10-23 09:18] LABS: Bilirubin Negative (Negative); Blood, Urine Negative (Negative); Clarity Clear (Clear); Glucose, Urine (Dipstick) Normal (Negative); Ketone, Urine Negative (Negative); Leukocyte 250 Leu/uL (Negative); Nitrite Negative (Negative); Protein, Urine (Dipstick) Negative (Neg-Trace); Specific Gravity, Urine 1.014 (1.002-1.036); Squamous Epithelial 0-3 HPF (0-3); Urobilinogen Normal mg/dL (Less than 2); WBC/HPF 21-50 HPF (0-3); pH, Urine 7.5 (5.0-9.0)
[2019-10-23 09:19] LABS: Bacteria/HPF 1+ HPF (None Seen)
[2019-10-23] MEDS ORDERED: cefTRIAXone\\ROCEPHIN 1 GM VIAL ONE (09:39)
[2019-10-23] MEDS ORDERED: Sodium Chloride 0.9% 100 ML ONE (09:40)
[2019-10-23 09:47] LABS: #Basophils 0.1 thou/uL (0.0-0.2); #Eosinphils 0.1 thou/uL (0.0-0.7); #Lymphocytes 1.1 thou/uL (1.20-3.40); #Monocytes 0.5 thou/uL (0.11-0.59); #Neutrophils 2.8 thou/uL (1.40-6.50); %Basophils 1.2 % (0.0-1.0); %Eosinophils 1.5 % (0.0-10.0); %Lymphocytes 23.2 % (21.0-51.0); %Monocytes 11.4 % (0.0-10.0); %Neutrophils 62.7 % (42.0-75.0); Hemoglobin 11.1 g/dL (12.0-16.0); Mean Corpuscular HGB CONC 33.9 g/dL (32.0-36.0); Mean Corpuscular Volume 88.7 fL (78.0-98.0); Mean Platelet Volume 8.5 fL (7.4-10.4); Platelet Count 223 thou/uL (130-400); RBC Distribution Width 12.3 % (11.5-14.5); White Blood Cell (WBC) Count 4.5 thou/uL (4.8-10.8)
[2019-10-23 10:10] LABS: ALT (SGPT) 20 U/L (8-55); AST (SGOT) 23 U/L (5-34); Albumin 3.9 g/dL (3.5-5.0); Alkaline Phosphatase 70 U/L (40-110); Anion Gap 11 mmol/L (10-20); BUN (Urea Nitrogen) 10 mg/dL (7.0-18.7); Bilirubin, Total 0.2 mg/dL (0.2-1.2); CK (CPK) 115 U/L (29-168); Calc. Creatinine Clearance 0 mL/min (70-130); Calcium 8.2 mg/dL (7.8-10.44); Carbon Dioxide 23 mmol/L (22-29); Chloride 106 mmol/L (98-107); Estimated GFR-MDRD Greater than 90; Globulin 2.7 g/dL (2.4-3.5); Glucose 93 mg/dL (70-105); Potassium 4.4 mmol/L (3.5-5.1); Protein, Total 6.6 g/dL (6.0-8.3); Sodium 136 mmol/L (136-145)
--- NOTE | 2019-10-23 10:45 | RAD ---
PORTABLE CHEST: HISTORY: Chest pain. COMPARISON: 07/13/2019 FINDINGS: The lung castro appear clear. The heart and mediastinum are unremarkable. No acute process identified . POS: AGW
== END 2019-10-23 10:51 ==
LOC: ERS 08:14 → EEVIPCON 08:14 → ERS 10:51
DX: N39.0 Urinary tract infection, site not specified (principal)
CPT/HCPCS: 36415; 71045; 80053; 81003; 81015; 82550; 84484; 85025; 85379; 87086; 93005; 96365; 96375; J0696; J1885; J2405; J3490